=== PATIENT | female | born 1950 | race Two or more races ===

== ENCOUNTER 2021-11-10 13:54 | Emergency (ER) | payer OTHER ==
[~2021-11-10] VITALS: Ht 160 cm; Wt 70.3 kg
--- NOTE | 2021-11-10 14:20 | NUR ---
PT W/C ASSISTED TO ER BED 3
--- NOTE | 2021-11-10 14:24 | NUR ---
[facility] AT BEDSIDE. PT IN GOWN.
[2021-11-10 14:58] LABS: BASOPHILS % (AUTO) 0.4 % (0.0-2.0); EOSINOPHILS % (AUTO) 0.3 % (0.0-4.0); HEMATOCRIT 30.2 % (36-48); HEMOGLOBIN 10.2 g/dL (12.0-16.0); LYMPHOCYTES # (AUTO) 1.1 K/uL (2.5-16.5); LYMPHOCYTES % (AUTO) 11.5 % (20.5-51.1); MEAN CORPUSCULAR HEMOGLOBIN 31 pg (27-31); MEAN CORPUSCULAR HGB CONC 34 g/dL (33-37); MEAN CORPUSCULAR VOLUME 91.7 fL (80-94); MONOCYTES # (AUTO) 0.6 K/uL (0.8-1.0); MONOCYTES % (AUTO) 5.8 % (1.7-9.3); NEUTROPHILS # (AUTO) 8.1 K/uL (1.8-7.7); PLATELET COUNT (AUTO) 301 K/uL (140-450); RED BLOOD CELL COUNT(AUTO) 3.29 MIL/uL (4.20-5.40); RED CELL DISTRIBUTION WIDTH 14.3 % (11.6-13.7); WHITE BLOOD COUNT (AUTO) 9.8 K/uL (4.8-10.8)
--- NOTE | 2021-11-10 15:11 | NUR ---
URINE CATH REPLACED AT DOCTORS OFFICE YESTERDAY. URINE OBTAINED AND SENT TO LAB
[2021-11-10 15:26] LABS: ANION GAP 12.2 (8-16); CARBON DIOXIDE 27.3 mmol/L (21-32); CHLORIDE 99 mmol/L (98-107); CREATININE 0.8 mg/dL (0.6-1.3); GLUCOSE 156 mg/dL (74-106); POTASSIUM 4.5 mmol/L (3.5-5.1); SODIUM SERUM 134 mmol/L (136-145); UREA NITROGEN, BLOOD 17 mg/dL (7-18)
--- NOTE | 2021-11-10 15:37 | NUR ---
PENDING ADMISSION . LABS STILL PENDING
[2021-11-10] MEDS ORDERED: KETOROLAC 15 MG/ML VIAL ONE (15:59)
[2021-11-10] MEDS ORDERED: SULFAMETH/TRIMETH DS 800/160MG 1 TAB PO ONE (16:05)
[2021-11-10] MEDS ORDERED: LIDOCAINE/PRILOCAINE 2.5% 5 GM TUBE TP ONE (16:05)
[2021-11-10] MEDS ORDERED: KETOROLAC 15 MG/ML VIAL IM ONE (16:10)
[2021-11-10] MEDS ORDERED: cefTRIAXone 1,000 MG VIAL ONE (16:37)
--- NOTE | 2021-11-10 17:18 | NUR ---
16FR [facility] CATH INSERTED.
--- NOTE | 2021-11-10 17:47 | NUR ---
COVID SWAB COLLECTED SENT TO LAB
--- NOTE | 2021-11-10 18:10 | NUR ---
POSSIBLE TRANSFER OUT PER INSURANCE REASONS
--- NOTE | 2021-11-10 20:59 | NUR ---
[facility] AT BEDSIDE FOR [place]
--- NOTE | 2021-11-10 21:20 | NUR ---
REPORT GIVEN TO ESTELA AT [facility] FOR TRANSFER OF CARE. ESTELA STATED ALL QUESTIONS ANSWERED AND READY TO RECEIVE PATIENT.
--- NOTE | 2021-11-10 21:40 | NUR ---
PT LEFT FACILITY AT THIS TIME
== END 2021-11-10 21:25 | disposition short-term general hospital (02) ==
LOC: MED 13:54
DX: T83.511A Infection and inflammatory reaction due to indwelling urethral catheter, initial encounter (principal); Z20.822 Contact with and (suspected) exposure to COVID-19; I10 Essential (primary) hypertension; Y84.6 Urinary catheterization as the cause of abnormal reaction of the patient, or of later complication, without mention of misadventure at the time of the procedure
CPT/HCPCS: 36415; 51702; 80048; 81002; 85025; 87040; 87086; 87426; 96365; 96372; 99285; J0696; J1885